=== PATIENT | female | born 1960 | race Caucasian/White ===

== ENCOUNTER 2020-11-06 07:45 | Outpatient (CLI) | payer OTHER, SELFPAY ==
--- NOTE | ~2020-11-06 | MM_ITS ---
EXAMINATION: MM screening mos[facility] BI w marques HISTORY: Screening mammogram TECHNIQUE: Craniocaudal and mediolateral oblique 3-D tomosynthesis images were obtained and synthetic 2-D images were generated. CAD analysis was submitted and interpreted. COMPARISON: 10/18/2019, 10/05/2018, 10/03/2017 bilateral digital screening mammogram examinations BREAST PARENCHYMAL COMPOSITION: The breasts are heterogeneously dense, which may obscure small masses . FINDINGS: There is no evidence of suspicious mass, calcification, or architectural distortion to sugg est malignancy in either breast. There has been no suspicious interval change. IMPRESSION: 1. No mammographic evidence of malignancy. 2. Recommend routine screening mammography in one year. BI-RADS Category 1: Negative Reviewed, dictated and finalized at location B. O BRACER
== END 2020-11-06 07:46 | disposition home or self-care (01) ==
LOC: ANHIMG 07:47
PROVIDERS: PCP Internal Medicine; Visit Provider Nurse Practitioner Women's Health
DX: Z12.31 Encounter for screening mammogram for malignant neoplasm of breast (principal)
CPT/HCPCS: 77063; 77067

== ENCOUNTER 2022-05-18 15:13 | Outpatient (CLI) | payer OTHER, SELFPAY ==
--- NOTE | ~2022-05-18 | DEXA_ITS ---
Bone Density Report Name: VIOLET WEBB Age: 61 Sex: Female Ethnicity: White Date of : 1960 Indication: postmenopausal osteoporosis; monitoring treatment; height loss; Referring Provider: JUANCARLOS, ZANDER Morales Study: Bone densitometry was performed. Exam Date: May 18, 2022 Accession number: [id number] Bone Density: Region BMD T-score Z-score Classification AP Spine(L1-L4) 0.830 -2.0 -0.3 Osteopenia Femoral Neck (Left) 0.593 -2.3 -0.9 Osteopenia Total Hip (Left) 0.722 -1.8 -0.7 Osteopenia Femoral Neck (Right) 0.610 -2.2 -0.7 Osteopenia Total Hip (Right) 0.696 -2.0 -0.9 Osteopenia Total Hip Mean 0.709 -1.9 -0.8 Osteopenia World Health Organization criteria for BMD impression classify patients as: Normal (T-score at or above -1.0), Osteopenia (T-score between -1.0 and -2.5), or Osteoporosis (T-score at or below -2.5). 10-year Fracture Risk: FRAX not reported because: Treated for osteoporosis Previous Exams: Region Exam Age BMD T-score BMD Change BMD Change Date g/cm2 vs Baseline vs Previous AP Spine (L1-L4) 05/18/2022 61 0.830 -2.0 0.118 (16.5%)* 0.054 (6.9%)* 10/18/2019 58 0.776 -2.5 0.064 (9.0%)* -0.021 (-2.6%) 10/03/2017 56 0.797 -2.3 0.085 (11.9%)* 0.085 (11.9%)* 09/17/2015 54 0.712 -3.0 Total Hip(Left) 05/18/2022 61 0.722 -1.8 0.014 (2.0%) -0.034 (-4.4%) 10/18/2019 58 0.756 -1.5 0.048 (6.8%)* 0.013 (1.8%) 10/03/2017 56 0.743 -1.6 0.035 (4.9%)* 0.035 (4.9%)* 09/17/2015 54 0.708 -1.9 Total Hip(Right) 05/18/2022 61 0.696 -2.0 0.053 (8.2%)* -0.018 (-2.5%) 10/18/2019 58 0.714 -1.9 0.070 (10.9%)* 0.008 (1.1%) 10/03/2017 56 0.706 -1.9 0.062 (9.7%)* 0.062 (9.7%)* 09/17/2015 54 0.643 -2.4 *Denotes significance at 95% confidence level, LSC for AP Spine = 0.022 g/cm2, LSC for Total Hip = 0.027 g/cm2 Clinical Information Provided by Patient: Smokes Is being treated for osteoporosis Has used the following medications: Fosamax (i.e. alendronate), Calcium Patient maximum height was 67 Menopause Age: 36 Drinks caffeinated beverages Onset of menses at age 11 Number of children 2 Impression: The patient has low bone mass, based on the Left Femoral Neck T-score. The patient has risk factors, including: smoking. The BMD for the Total Hip(Left) decreased, changing by -4.4% since the last DXA exam. Discussion: SIGNIFICANT BONE LOSS OBSERVED. Baylee
--- NOTE | ~2022-05-18 | MM_ITS ---
EXAMINATION: MM screening [facility] BI w marques HISTORY: Screening TECHNIQUE: Craniocaudal and mediolateral oblique 3-D tomosynthesis images were obtained and synthetic 2-D images were generated. CAD analysis was submitted and interpreted. COMPARISON: Comparison to multiple prior studies sequentially, with oldest reviewed study dated 08/30. BREAST PARENCHYMAL COMPOSITION: There are scattered areas of fibroglandular density. FINDINGS: There is no evidence of suspicious mass, calcification, or architectural distortion to sugg est malignancy in either breast. There has been no suspicious interval change. IMPRESSION: 1. No mammographic evidence of malignancy. 2. Recommend routine screening mammography in one year. BI-RADS Category 1: Negative Reviewed, dictated and finalized at location A.
== END 2022-05-18 15:14 | disposition home or self-care (01) ==
LOC: ANHIMG 15:15
PROVIDERS: PCP Internal Medicine; Visit Provider Nurse Practitioner Women's Health
DX: Z12.31 Encounter for screening mammogram for malignant neoplasm of breast (principal); N95.1 Menopausal and female climacteric states; Z12.4 Encounter for screening for malignant neoplasm of cervix; Z11.51 Encounter for screening for human papillomavirus (HPV); M85.88 Other specified disorders of bone density and structure, other site; M85.852 Other specified disorders of bone density and structure, left thigh; M85.851 Other specified disorders of bone density and structure, right thigh
CPT/HCPCS: 77063; 77067; 77080

== ENCOUNTER 2023-05-19 08:00 | Outpatient (CLI) | payer OTHER, SELFPAY ==
--- NOTE | ~2023-05-19 | MM_ITS ---
EXAMINATION: MM screening moshe BI w marques HISTORY: Screening TECHNIQUE: Craniocaudal and mediolateral oblique 3-D tomosynthesis images were obtained and synthetic 2-D images were generated. CAD analysis was submitted and interpreted. COMPARISON: Comparison to multiple prior studies sequentially, with oldest reviewed study dated 09/01. BREAST PARENCHYMAL COMPOSITION: The breasts are heterogeneously dense, which may obscure small masses . FINDINGS: There are new focal asymmetries in the periareolar location of the left breast on CC view. The right breast is stable without evidence for malignancy. IMPRESSION: 1. New focal left breast asymmetries located in the periareolar location on CC view. 2. Additional mammographic views and possible breast ultrasound are recommended. BI-RADS Category 0: Incomplete: Needs additional imaging evaluation. Reviewed, dictated and finalized at location A. IMPRESSION: 1. New focal left breast asymmetries located in the periareolar location on CC view. 2. Additional mammographic views and possible breast ultrasound are recommended . BI-RADS Category 0: Incomplete: Needs additional imaging evaluation.
== END 2023-05-19 08:01 | disposition home or self-care (01) ==
LOC: ANHIMG 08:02
PROVIDERS: PCP Internal Medicine; Visit Provider Nurse Practitioner Women's Health
DX: Z12.31 Encounter for screening mammogram for malignant neoplasm of breast (principal); R92.8 Other abnormal and inconclusive findings on diagnostic imaging of breast
CPT/HCPCS: 77063; 77067; 97014; 97140; 97530; G0283

== ENCOUNTER 2023-05-23 08:00 | Outpatient (RCR) | payer OTHER, SELFPAY ==
--- NOTE | 2023-04-19 10:11 | PTOPEVAL1 ---
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, lift hay, etc; is doing everything but pain increases Reported Pain Level Pain Score Self Report R shoulder pain Additional Pain Score Comments in the past week 5- 06/08, pop and shooting pain in lateral deltoid; increase pain with extension and ER of shoulder and reaching across body; lifting, using arm; awaken after 1& 1/2 to 2 hours of sleeping with pain (norm for her 4-5 /hr night) decrease pain: hold arm at her side heat and ice--do not help her pain; instruct to try ice again, at end of day for irritation to shoulder pain meds--not help, stopped taking; Assessment PT Clinical Summary Melissa has the diagnosis of R shoulder pain/ subdeltoid bursitis, onset about 3 months ago. She had R shoulder acromioplasty about 2018 and did not have any shoulder pain after surgery. She is very active, runs a [employer]. Currently, she is doing all of her usual tasks, with more pain in her shoulder and sleep is disrupted due to pain. With the evaluation: she has decreased active shoulder flexion, abduction and IR motions, all with pain increase--IR and abduction most painful; poor standing posture and position of shoulder and scapular and rounding of trunk; Skilled PT services are indicated for modalities to decrease pain; therapeutic exercises to increase R shoulder strength and ROM, with education for home exercises, posture with work tasks and position of shoulder joint. Plan of Care Interventions Electrical Stimulation,Hot Pack/Cold Pack,Manual Therapy,Neuro Re-education,Patient Edu
--- NOTE | 2023-05-16 08:20 | PCPTNOTE ---
Pt rescheduled todays appt to Monday this week.
[2023-05-23 08:10] VITALS: BP_SYST 120
--- NOTE | 2023-05-23 08:48 | OPREHPOC ---
Outpatient Therapy Plan of Care This is a Multidisciplinary Plan of Care that may contain components documented by all disciplines (PT, OT, and ST.) PT Problem 1 PT Problem #1 Knowledge Deficit PT Goal 1 Goal 1* pt indep with HEP 2* pt understand and demonstrate correct posture with simulated work tasks-- shoveling, lifting, raking Progress Partially Met Comment 05-23-23 progress/ HOLD--await new orders if to continue treatment met goal 1 PT Problem 2 PT Problem #2 Pain PT Goal 1 Goal 1* R shoulder pain at worst 03/08 2* pt report tolerance with sleeping of 3 hours Progress Not Met Comment 05-23-23 progress/ HOLD--await new orders if to continue treatment goals not met: #1 06/08 and #2 is 2 hours PT Problem 3 PT Problem #3 Impaired Range of Motion PT Goal 1 Goal active R shoulder ROM in standin* flexion 130' 2* abduction 120' 3* IR- reach behind back, palm to waist Progress Not Met Comment 05-23-23 progress/ HOLD--await new orders if to continue treatment #1 is 70'; #2 is 85', #3 is palm to R SIJ PT Problem 4 PT Problem #4 Impaired Strength PT Goal 1 Goal R shoulder in standing, 5 reps: 1* flexion to 90' with 3# hand weight 2* abduction to 90' with 2# hand weight Progress Not Met Comment 05-23-23 progress/ HOLD--await new orders if to continue treatment
--- NOTE | 2023-05-23 08:49 | PTOPPROG ---
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 is frustrated with continued pain and wants to get an MRI and get shoulder fixed. Assessment PT Clinical Summary Melissa has received 6 PT sessions. Compared to the initial evaluation: pain rating at the low rating from 5 to 7/10 and high rating same at 8/10; sleeping tolerance is same at 2 hours/time; active R shoulder flexion and abduction active ROM has decreased flexion 70' & abduction 85', with IR and ER motions the same; passive shoulder flexion and abduction motions are 120' in supine, which was her active motion at evaluation; education completed for HEP and posture correction. Modalities used during PT did not improve her pain --heat, ice, manual therapy, ultrasound, electrical stim, taping. The goals were partially met. She has an appointment next week with her medical provider. PLAN: HOLD PT. If she is to continue therapy--- she will need a new script. Plan of Care Interventions Electrical Stimulation,Hot Pack/Cold Pack,Manual Therapy,Neuro Re-education,Patient Education,Therapeutic Activities,Therapeutic Exercise,Ultrasound,Other Other Interventions taping, I[facility] PT Services Indicated Yes Treatment Frequency and to see dr----HOLD PT. Await new script, If Duration therapy is to continue; These treatments will address the objective and functional deficits as defined above. The patient will be advanced safely and appropriately in order for the patient to progress towards his/her prior level of function. Additional exercises will be introduced and as well as a comprehensive home exercise program upon discharge, if needed, ?to ensure carryover of functional gains achieved in the clinic. This treatment plan has been reviewed and agreement upon by the patient.
--- NOTE | 2023-06-21 16:22 | PTOPDC ---
Assessment and note entered by Federica Gaxiola, PT Evaluation Information Assessment PT Clinical Summary DISCHARGE PT Further orders were not received after 05-23-23 progress note. Therefore, she will be discharged from PT at this time. Plan of Care PT Services Indicated No
== END 2023-06-22 13:59 | disposition home or self-care (01) ==
LOC: ANHPT 08:00
PROVIDERS: PCP Internal Medicine; Visit Provider Physician Assistant
DX: M75.51 Bursitis of right shoulder (principal); Z98.890 Other specified postprocedural states
CPT/HCPCS: 97014; 97035; 97110; 97140; 97161; 97530; G0283

== ENCOUNTER 2023-06-16 12:13 | Outpatient (CLI) | payer OTHER, SELFPAY ==
--- NOTE | ~2023-06-16 | MMUS_ITS ---
EXAMINATION: MM diagnostic moshe LT w marques, US breast LT complete HISTORY: Follow-up left breast asymmetry TECHNIQUE: Additional 3-D tomosynthesis images of the left breast were performed and synthetic 2-D im ages were generated. CAD analysis was submitted and interpreted. High resolution complete left breast ultrasound was performed. COMPARISON: 09/28/2016 BREAST PARENCHYMAL COMPOSITION: The breasts are heterogeneously dense, which may obscure small masses FINDINGS: MAMMOGRAPHIC FINDINGS: There are no suspicious masses, calcifications or architectural distortion in the left breast to sugg est malignancy. ULTRASOUND: Complete US of all 4 quadrants of the left breast and retroareolar region was reviewed. Normal hetero geneous echotexture without focal solid or cystic mass. IMPRESSION: 1. No evidence for malignancy in the left breast. 2. Routine yearly screening mammogram and regular clinical breast examination are recommended. BI-RADS Category 1: Negative Reviewed, dictated and finalized at location A. IMPRESSION: 1. No evidence for malignancy in the left breast. 2. Routine yearly screening mammogram and regular clinical breast examination a re recommended. BI-RADS Category 1: Negative
== END 2023-06-16 12:14 | disposition home or self-care (01) ==
LOC: ANHIMG 12:14
PROVIDERS: PCP Internal Medicine; Visit Provider Nurse Practitioner Women's Health
DX: R92.8 Other abnormal and inconclusive findings on diagnostic imaging of breast (principal)
CPT/HCPCS: 76641; 77061; 77065; G0279

== ENCOUNTER 2023-10-06 08:00 | Outpatient (RCR) | payer OTHER, SELFPAY ==
--- NOTE | 2023-09-08 10:41 | PTOPEVAL1 ---
Assessment and note entered by Chris Biggs, PT Evaluation Information Assessment Status Evaluation Diagnosis s/p R shoulder arthroscopy, debridement, biceps tenotomy Onset 08/31/23 Subjective Information Reports that she feels she is doing better overall right. She has trouble lifting away from her body and behind her body. Trouble with pushing and sweeping. She is R handed. Currently no difficulty with sleeping. Reported Pain Level Pain Score 0: Self Report Assessment PT Clinical Summary Patient is doing very well overall for only being 1 week out of surgery. she is showing typical signs of ROM loss, weakness, and pain following surgery but as indicated by disability index quickly improving. 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 Plan of Care Interventions Electrical Stimulation,Hot Pack/Cold Pack,Manual Therapy,Neuro Re-education,Therapeutic Activities, Therapeutic Exercise PT Services Indicated Yes Treatment Frequency and 2x/week for 6 weeks Duration These treatments will address the objective and functional deficits as defined above. The patient will be advanced safely and appropriately in order for the patient to progress towards his/her prior level of function. Additional exercises will be introduced and as well as a comprehensive home exercise program upon discharge, if needed, ?to ensure carryover of functional gains achieved in the clinic. This treatment plan has been reviewed and agreement upon by the patient.
--- NOTE | 2023-09-19 09:58 | PCPTNOTE ---
Patient cancelled scheduled appointment this date due to showing up at the wrong appointment time and not being able to stay until her actual treatment time.
--- NOTE | 2023-09-29 08:45 | PCPTNOTE ---
Addendum entered by Chris Biggs, PT 09/29/23 08:47: Patient arrived 15 minutes late and was seen. Original Note: Patient was No Show for today's treatment.
--- NOTE | 2023-10-10 08:01 | PTOPDC ---
Assessment and note entered by Chris Biggs, PT Discharge Information Assessment Status Discharge - Pt Not Present Diagnosis s/p R shoulder arthroscopy, debridement, biceps tenotomy Onset 08/31/23 Subjective Information Patient contacted clinic to cancel her Re- Evaluation appointment. States that she cannot make it it does not feel need to reschedule due to being back to work and feeling good. Assessment PT Clinical Summary Patient cancelled today's session and did not reschedule. She plans to discharge from therapy. She has been doing well overall. Please refer to last treatment note for discharge status. Plan of Care PT Services Indicated Discharge to HEP
== END 2023-11-01 08:27 | disposition home or self-care (01) ==
LOC: ANHGOSHPT 08:00
PROVIDERS: PCP Internal Medicine; Visit Provider Physician Assistant
DX: Z48.89 Encounter for other specified surgical aftercare (principal); Z98.890 Other specified postprocedural states
CPT/HCPCS: 97110; 97140; 97161; 97530; 99199